=== PATIENT | male | born 2000 | race Caucasian/White ===

== ENCOUNTER 2021-06-06 19:04 | Emergency (ER) | payer OTHER ==
[~2021-06-06] VITALS: Ht 172.7 cm; Wt 79.4 kg
[2021-06-06 19:51] VITALS: BP 130/73
== END 2021-06-06 19:51 | disposition home or self-care (01) ==
LOC: M.ERS 19:04
DX: S91.311A Laceration without foreign body, right foot, initial encounter (principal); W22.8XXA Striking against or struck by other objects, initial encounter; Y93.89 Activity, other specified; Y92.89 Other specified places as the place of occurrence of the external cause; Y99.8 Other external cause status